=== PATIENT | male | born 1975 | race Caucasian/White ===

== ENCOUNTER 2019-02-08 09:07 | Emergency (ER) | payer BC, OTHER ==
--- NOTE | 2019-02-08 10:58 | ER ---
Nurse's Notes [facility] Name: Morris Tan Age: 43 yrs Sex: Male : 1975 Arrival Date: 02/08/2019 Time: 09:09 Bed 23 Private MD: Diagnosis: Other bursitis of elbow, left elbow Presentation: 02/08 09:13 Presenting complaint: Patient states: Redness and swelling to L arm x 4 days. Patient ss was placed on Clindamycin 2 days ago, but reports it seems to be getting worse. No known injury. Transition of care: patient was not received from another setting of care. Onset of symptoms was February 04, 2019. Risk Assessment: Do you want to hurt yourself or someone else? Patient reports no desire to harm self or others. Initial Sepsis Screen: Does the patient meet any 2 criteria? No. Patient's initial sepsis screen is negative. Does the patient have a suspected source of infection? Yes: Skin breakdown/wound. Care prior to arrival: None. 09:13 Method Of Arrival: Ambulatory ss 09:13 Acuity: NAY 3 ss Historical: - Allergies: 09:15 No Known Allergies; ss - Home Meds: 09:15 Clindamycin Oral [Active]; ss - PMHx: 09:15 None; ss - PSHx: 09:15 Cholecystectomy; detetched retina repair; ss - Immunization history:: Adult Immunizations up to date. - Social history:: Smoking status: Patient/guardian denies using tobacco. - Ebola Screening: : Patient denies exposure to infectious person Patient denies travel to an Ebola-affected area in the 21 days before illness onset. Screenin:13 Abuse screen: Denies threats or abuse. Denies injuries from another. Nutritional ss screening: No deficits noted. Tuberculosis screening: Never had TB. Fall Risk None identified. Assessment: 09:13 General: Appears in no apparent distress. comfortable, Behavior is calm, cooperative, ss Denies fever, feeling ill, fatigue, chills. Pain: Complains of pain in left elbow Pain currently is 3 out of 10 on a pain scale. Quality of pain is described as aching, tender, Pain began 4 days ago Is continuous. Neuro: Level of Consciousness is awake, alert, obeys commands, Oriented to person, place, time, situation. Cardiovascular: Capillary refill < 3 seconds is brisk in bilateral fingers Patient's skin is warm and dry. Respiratory: Airway is patent Respiratory effort is even, unlabored, Respiratory pattern is regular, symmetrical. GI: Patient currently denies diarrhea, nausea, vomiting. : No signs and/or symptoms were reported regarding the genitourinary system. EENT: Nares are clear Oral mucosa is moist. Derm: Skin is intact, is healthy with good turgor, Skin is dry, Skin is pink, warm \T\ dry. normal, redness noted to L elbow. Musculoskeletal: Circulation, motion, and sensation intact. Range of motion: intact in all extremities, Swelling present in left elbow. Vital Signs: 09:12 BP 137 / 85; Pulse 71; Resp 16; Temp 98.1(TE); Pulse Ox 97% on R/A; Weight 92.99 kg; ss Height 6 ft. 0 in. (182.88 cm); Pain 3/10; 09:12 Body Mass Index 27.80 (92.99 kg, 182.88 cm) ED Course: 09:09 Patient arrived in ED. as 09:12 Arm band placed on right wrist. ss 09:13 Patient has correct armband on for positive identification. Bed in low position. Call ss light in reach. 09:14 Triage completed. ss 10:35 Rajendra Jacob PA is PHCP. cp 10:35 Adia Howell MD is Attending Physician. cp 10:54 Yazmin Diaz RN is Primary Nurse. ss 10:56 Bayron Izquierdo MD is Referral Physician. cp 10:56 No provider procedures requiring assistance completed. Patient did not have IV access ss during this emergency room visit. Administered Medications: 10:52 Not Given (Physician Discretion): NS 0.9% 1000 ml IV at 1 bolus Per protocol; 1000 mL ss bolus Outcome: 10:58 Discharge ordered by MD. cp 11:06 Discharged to home ambulatory. ss 11:06 Condition: good 11:06 Discharge instructions given to patient, Instructed on discharge instructions, follow up and referral plans. medication usage, Demonstrated understanding of instructions, follow-up care, medications, Prescriptions given X 4. 11:06 Patient left the ED. ss Signatures: Sue Singh Shelby, RN RN Rajendra Jacob PA PA cp
--- NOTE | 2019-02-08 10:58 | EDPHYS ---
Physician Documentation [facility] Name: Morris Tan Age: 43 yrs Sex: Male : 1975 Arrival Date: 02/08/2019 Time: 09:09 Bed 23 Private MD: ED Physician Adia Howell HPI: 02/08 10:45 This 43 yrs old Male presents to ER via Ambulatory with complaints of Elbow cp Swelling/Redness. 10:45 The patient or guardian complains of pain, that is acute, swelling, tenderness. The cp complaints affect the left elbow. Context: resulted from unknown cause. 10:45 Onset: The symptoms/episode began/occurred 4 day(s) ago. Treatment prior to arrival cp includes: prescription medications, clindamycin. Associated signs and symptoms: Pertinent positives: pain, swelling, warmth, Pertinent negatives: decreased range of motion, fever, numbness. Historical: - Allergies: 09:15 No Known Allergies; ss - Home Meds: 09:15 Clindamycin Oral [Active]; ss - PMHx: 09:15 None; ss - PSHx: 09:15 Cholecystectomy; detetched retina repair; ss - Immunization history:: Adult Immunizations up to date. - Social history:: Smoking status: Patient/guardian denies using tobacco. - Ebola Screening: : Patient denies exposure to infectious person Patient denies travel to an Ebola-affected area in the 21 days before illness onset. ROS: 10:50 Constitutional: Negative for body aches, chills, fever, poor PO intake. cp 10:50 Eyes: Negative for injury, pain, redness, and discharge. cp 10:50 ENT: Negative for drainage from ear(s), ear pain, sore throat, difficulty swallowing, difficulty handling secretions. 10:50 Cardiovascular: Negative for chest pain, palpitations. 10:50 Respiratory: Negative for cough, shortness of breath, wheezing. 10:50 Abdomen/GI: Negative for abdominal pain, nausea, vomiting, and diarrhea, constipation. 10:50 MS/extremity: Positive for pain, swelling, tenderness, of the left elbow, Negative for injury or acute deformity, decreased range of motion, paresthesias. 10:50 Neuro: Negative for altered mental status, numbness, tingling, weakness. 10:50 All other systems are negative. cp Exam: 10:55 Constitutional: The patient appears in no acute distress, alert, awake, cp non-diaphoretic, non-toxic, well developed, well nourished. 10:55 Head/Face: Normocephalic, atraumatic. cp 10:55 Eyes: Periorbital structures: appear normal, Conjunctiva: normal, no exudate, no injection, Sclera: no appreciated abnormality, Lids and lashes: appear normal, bilaterally. 10:55 ENT: External ear(s): are unremarkable, TM's: are normal, Nose: is normal, Mouth: is normal, Posterior pharynx: is normal. 10:55 Chest/axilla: Inspection: normal, Palpation: is normal, no crepitus, no tenderness. 10:55 Cardiovascular: Rate: normal, Rhythm: regular. 10:55 Respiratory: the patient does not display signs of respiratory distress, Respirations: normal, no use of accessory muscles, Breath sounds: are clear throughout. 10:55 Abdomen/GI: Exam negative for discomfort, distension. 10:55 Musculoskeletal/extremity: Extremities: grossly normal except: noted in the left elbow: pain, swelling, tenderness, There is no evidence of decreased ROM, ROM: limited active range of motion due to pain, in the left elbow, Pulses: noted to be 2+ in the right radial artery and left radial artery, Sensation intact. 10:55 Skin: cellulitis, that is mild, on the left elbow. Vital Signs: 09:12 BP 137 / 85; Pulse 71; Resp 16; Temp 98.1(TE); Pulse Ox 97% on R/A; Weight 92.99 kg; ss Height 6 ft. 0 in. (182.88 cm); Pain 3/10; 09:12 Body Mass Index 27.80 (92.99 kg, 182.88 cm) ss MDM: 10:44 Patient medically screened. cp 10:45 Differential diagnosis: abscess, cellulitis, septic joint, bursitis. cp 10:50 Data reviewed: vital signs, nurses notes, I have discussed the patient's cp presentation/case with the attending Emergency Department Physician;. 10:50 Counseling: I had a detailed discussion with the patient and/or guardian regarding: the cp historical points, exam findings, and any diagnostic results supporting the discharge/admit diagnosis, the need for outpatient follow up, a orthopedic surgeon, to return to the emergency department if symptoms worsen or persist or if there are any questions or concerns that arise at home. ED course: VSS. Will have patient increase clindamycin from 300 mg tid to qid and oral Bactrim DS added to take BID. Will discharge and refer to ortho for f/u. 11:43 ED course: Clindamycin quantity changed to #40 for pharmacy. snw Administered Medications: 10:52 Not Given (Physician Discretion): NS 0.9% 1000 ml IV at 1 bolus Per protocol; 1000 mL ss bolus Disposition: 12:03 Co-signature as Attending Physician, Adia Howell MD. ma2 Disposition: 02/08/19 10:58 Discharged to Home. Impression: Other bursitis of elbow, left elbow. - Condition is Stable. - Discharge Instructions: Bursitis, Heat Therapy. - Prescriptions for Clindamycin HCl 300 mg Oral Capsule - take 1 capsule by ORAL route every 6 hours for 10 days; 10 capsule. Ibuprofen 800 mg Oral Tablet - take 1 tablet by ORAL route every 8 hours As needed take with food; 30 tablet. Tramadol 50 mg Oral Tablet - take 1 tablet by ORAL route every 8 hours as needed; 15 tablet. Bactrim DS 800- 160 mg Oral Tablet - take 1 tablet by ORAL route every 12 hours for 10 days; 20 tablet. - Medication Reconciliation Form, Thank You Letter, Antibiotic Education, Prescription Opioid Use form. - Follow up: Bayron Izquierdo MD; When: 1 - 2 days; Reason: Recheck today's complaints. - Problem is an ongoing problem. - Symptoms are unchanged. Signatures: Dispatcher [employer] Jesika Amaro, [employer] Yazmin Diaz RN RN ss Rajendra Jacob PA PA cp Alzahri, Mohammad, MD MD ma2 Corrections: (The following items were deleted from the chart) 10:53 10:46 IV Saline Lock ordered. [facility] 11:06 10:58 02/08/2019 10:58 Discharged to Home. Impression: Other bursitis of elbow, left ss elbow. Condition is Stable. Forms are Medication Reconciliation Form, Thank You Letter, Antibiotic Education, Prescription Opioid Use. Follow up: Bayron Izquierdo; When: 1 - 2 days; Reason: Recheck today's complaints. Problem is an ongoing problem. Symptoms are unchanged. cp 02/09 06:53 02/08 09:20 Constitutional: Negative for body aches, chills, fever, poor PO intake, cp cp 02/09 06:02/08 09:20 Eyes: Negative for injury, pain, redness, and discharge, cp cp 02/09 06:02/08 09:20 ENT: Negative for drainage from ear(s), ear pain, sore throat, difficulty cp swallowing, difficulty handling secretions, cp 02/09 06:02/08 09:20 Cardiovascular: Negative for chest pain, edema, palpitations, cp cp 02/09 06:02/08 09:20 Respiratory: Negative for cough, shortness of breath, wheezing, cp cp 02/09 06:02/08 09:20 Abdomen/GI: Negative for abdominal pain, nausea and vomiting, constipation, cp anorexia, cp 02/09 06:02/08 09:20 Back: Negative for pain at rest, pain with movement, cp 02/09 06:02/08 09:20 MS/extremity: Positive for pain, swelling, tenderness, warmth, of the left cp elbow, Negative for injury or acute deformity, decreased range of motion, paresthesias, cp 02/09 06:02/08 09:20 Neuro: Negative for altered mental status, headache, syncope, cp cp 02/09 06:02/08 09:20 All other systems are negative, cp cp
[2019-02-08 11:31] VITALS: BP 137/85; TEMP 98.1; O2SAT 97
== END 2019-02-08 11:06 | disposition home or self-care (01) ==
LOC: ER 09:07
DX: M70.32 Other bursitis of elbow, left elbow (principal)
CPT/HCPCS: 99282

== ENCOUNTER 2020-05-07 01:12 | Observation (INO) | payer OTHER ==
--- OUTSIDE RECORDS SUMMARY | 2020-05-07 01:20 | XMS REPORT | Summary of Care ---
:1975 Author Organization [facility] Address [address] [place] [id number] Care Team Providers Name Role Phone Pcp, Does Not Have A Primary Care Provider Reason for Visit Reason Comments Nausea 2 days Encounter Details Date Type Department Care Team Description 03/22/2020 Urgent Care [facility] Karuna Duran FNP [address] [facility] [address] [place] [address] Acute non-recurrent maxillary sinusitis (Primary Dx); Medicine - [place] Provider, [facility] Nausea and vomiting, intractability of v omiting not specified, unspecified vomiting type [address] [place] [address] Allergies Active Allergy Reactions Severity Noted Date Comments Codeine Itching Low 02/26/2019 documented as of this encounter (statuses as of 03/22/2020) Medications Medication Sig Dispensed Refills Start Date End Date Status amoxicillin-clavulanat Take 1 tablet by 20 tablet 0 03/22/2020 04/01/2020 Active e 875-125 mg per mouth 2 (two) tabletIndications: times daily for Acute non-recurrent 10 days. maxillary sinusitis ondansetron (ZOFRAN Take 1 tablet by 20 tablet 0 03/22/2020 Active ODT) 8 mg mouth every 8 disintegrating (eight) hours as tabletIndications: needed for Nausea and vomiting, Nausea and intractability of Vomiting (N/V). vomiting not specified, unspecified vomiting type documented as of this encounter (statuses as of 03/22/2020) Active Problems Problem Noted Date Post-op pain 02/28/2019 documented as of this encounter (statuses as of 03/22/2020) Social History Tobacco Use Types Packs/Day Years Used Date Never Smoker Smokeless Tobacco: Never Used Alcohol Use Drinks/Week oz/Week Comments Yes occasionally jessa oun 2-3 times a month Sex Assigned at Date Recorded Not on file COVID-19 Exposure Response Date Recorded In the last month, have you been in contact with No / Unsure 03/22/2020 3:46 PM CDT someone who was confirmed or suspected to have Coronavirus / COVID-19? documented as of this encounter Last Filed Vital Signs Vital Sign Reading Time Taken Comments Blood Pressure 141/85 03/22/2020 3:50 PM CDT Pulse 81 03/22/2020 3:48 PM CDT Temperature 36.8 C (98.2 F) 03/22/2020 3:48 PM CDT Respiratory Rate 16 03/22/2020 3:48 PM CDT Oxygen Saturation 98% 03/22/2020 3:48 PM CDT Inhaled Oxygen Concentration - - Weight 90.3 kg (199 lb) 03/22/2020 3:48 PM CDT Height 182.9 cm (6') 03/22/2020 3:48 PM CDT Body Mass Index 26.99 03/22/2020 3:48 PM CDT documented in this encounter Patient Instructions Patient InstructionsKaruna Duran FNP - 03/22/2020 4:00 PM CDT1. Acute non- recurrent maxillary sinusitis - amoxicillin-clavulanate 875-125 mg per tablet; Take 1 tablet by mouth 2 (two) times daily for 10 days. Dispense: 20 tablet; Refill: 0 - counseled patient about at home care: Rest Raise head of bed Increase fluids -HYDRATION WITH CLEAR LIQUIDS Warm salt water gargles or CEPACOL sprays for sore throat. Breath humidified air (steam) SIPPING WARM DRINKS may help. Warm Compresses (if sinus pressure or pain). HAND HYGIENE (with alcohol gels or hand washing) Advised to take Tylenol or Ibuprofen as per label recommendation as needed for pain or fever Avoidance of cigarette smoke, alcoholic drinks, diving into deep water and air travel is useful. Irrigate your nose with normal saline moisture spray 2 or 3 times a day. You may use a spray, squeeze bottle, or nasal pot. Nasal Congestion (Stopped Up): Oxymetazoline HCl (Afrin, 4-Way, & more) 0.05 % nasal spray, 1 spray each nostril at bedtime. Limit to 5 nights. If use twice a day then limit to 3 days. - Advised to follow up with PCP, return to Urgent Care, or go to the nearest Emergency Department sooner for any new, worsening, persistent, or concerning symptoms. 2. Nausea and vomiting, intractability of vomiting not specified, unspecified vomiting type - ondansetron (ZOFRAN ODT) 8 mg disintegrating tablet; Take 1 tablet by mouth every 8 (eight) hours as needed for Nausea and Vomiting (N/V). Dispense: 20 tablet; Refill: 0 - increase fluids - Follow up with PCP, urgent care or ER in 2-3 days or sooner if symptoms do now improve or worsens.Patient/parent verbalized understanding and agreed with plan of care. Plan of care, desired health behaviors, goals, and medication discussed with patient. Education resources provided and reviewed with AVS. Patient/guardian/family verbalized understanding & agrees to plan of care. Urgent Care precautions and follow up : 1. Return to clinic if your symptoms should worsen or fail to improve within 72 hours. 2. The care provided in the urgent care was for acute problems only. 3. You should follow up with your primary care provider within 72 hours. 4. Fill and take all your medications as prescribed. 5. Make sure you are staying adequately hydrated. MAY FOLLOW-UP WITH A PROVIDER OF YOUR CHOICE, SUCH : 1. A PHYSICIAN OF YOUR CHOICE OR, IF YOU WISH TO FOLLOW-UP WITHIN THE [facility], MAY TRY THESE OPTIONS (CLINIC APPOINTMENTS AVAILABLE ON [id number] BASIS): 1. SCHEDULE AN APPOINTMENT ONLINE AT [facility] 2. OR CALL THE [facility] ACCESS CENTER AT OR 3. OR CALL YOUR [facility] PHYSICIAN'S OFFICE DIRECTLY IF YOU ARE ALREADY AN ESTABLISHED [facility] PATIENT. After [facility] care nurse access center available by calling [phone] 24 hours 7 days per week. Karuna RUBIO [facility] [facility] documented in this encounter Progress Notes Karuna Duran FNP - 03/22/2020 4:00 PM CDT Cc: Chief Complaint Patient presents with Nausea 2 days Morris Tan is a 44 year old male presents with concern for nausea. He started yesterday withnausea, headache and worsening allergy symptoms. He has chronic allergies but doesn't take any otc medication. One episode of emesis yesterday, mostly phlegm. Denies any chest pain, sob, vision changes, syncope or worse headache of life. Denies any fever, chills or body aches. Denies any sick contacts. Eating/drinking good Sinus Problem Pain details: Location: Maxillary Quality: Aching and pressure Severity: Moderate Duration: 3 days Timing: Intermittent Duration: 2 weeks Progression: Worsening Chronicity: New Context: recent URI Relieved by: None tried Worsened by: Nothing Ineffective treatments: None tried Associated symptoms: congestion, cough, fatigue, headaches, mouth breathing, nausea, sneezing and vomiting Associated symptoms: no chills, no ear pain, no fever, no hoarse voice, no shortness of breath, no sore throat, no tooth pain, no vertigo and no wheezing Congestion: Location: Nasal Interferes with sleep: yes Interferes with eating/drinking: no Cough: Cough characteristics: Dry Severity: Mild Onset quality: Gradual Duration: 2 days Timing: Intermittent Progression: Unchanged Chronicity: New Fatigue: Severity: Mild Duration: 2 days Timing: Intermittent Progression: Unchanged Headaches: Severity: Mild Onset quality: Gradual Duration: 1 day Timing: Intermittent Progression: Unchanged Chronicity: New Nausea: Severity: Mild Onset quality: Gradual Duration: 1 day Timing: Intermittent Progression: Unchanged Vomiting: Emesis appearance: phlegm. Number of occurrences: 1 Severity: Mild Duration: 1 day Timing: Intermittent Progression: Improving Risk factors: no asthma, no COPD, no diabetes, no immune deficiency and no smoke exposure Allergies Morris is allergic to codeine. Medications No outpatient medications prior to visit. No facility-administered medications prior to visit. Histories Past Medical History: Diagnosis Date Acid reflux Medical history non-contributory Past Surgical History: Procedure Laterality Date ELBOW BURSECTOMY Left 02/28/2019 Surgeon: Bayron Izquierdo MD; Location: [facility] [place] HB REPAIR DETACT RETINAL Right LAP,CHOLECYSTECTOMY Social History Socioeconomic History Marital status: Single Spouse name: Not on file Number of children: Not on file Years of education: Not on file Highest education level: Not on file Occupational History Not on file Social Needs Financial resource strain: Not on file Food insecurity Worry: Not on file Inability: Not on file Transportation needs Medical: Not on file Non-medical: Not on file Tobacco Use Smoking status: Never Smoker Smokeless tobacco: Never Used Substance and Sexual Activity Alcohol use: Yes Comment: occasionally arooun 2-3 times a month Drug use: Not on file Sexual activity: Not on file Lifestyle Physical activity Days per week: Not on file Minutes per session: Not on file Stress: Not on file Relationships Social connections Talks on phone: Not on file Gets together: Not on file Attends muslim service: Not on file Active member of club or organization: Not on file Attends meetings of clubs or organizations: Not on file Relationship status: Not on file Intimate partner violence Fear of current or ex partner: Not on file Emotionally abused: Not on file Physically abused: Not on file Forced sexual activity: Not on file Other Topics Concern Not on file Social History Narrative Not on file Family History Problem Relation Age of Onset Diabetes Maternal Grandmother Cancer Maternal Grandmother Review of Systems Constitutional: Positive for fatigue. Negative for activity change, appetite change, chills and fever. HENT: Positive for congestion, postnasal drip, sinus pressure and sneezing. Negative for ear pain, hoarse voice and sore throat. Respiratory: Positive for cough. Negative for shortness of breath, wheezing and stridor. Gastrointestinal: Positive for nausea and vomiting. Negative for abdominal pain and diarrhea. Musculoskeletal: Negative for myalgias. Skin: Negative for rash. Neurological: Positive for headaches. Negative for dizziness, vertigo, tremors, seizures, syncope, facial asymmetry, speech difficulty, weakness, light- headedness and numbness. All other systems reviewed and are negative. Vital Signs BP (!) 141/85 | Pulse 81 | Temp 36.8 C (98.2 F) | Resp 16 | Ht 6' (1.829 m) | Wt 199 lb (90.3 kg) | SpO2 98% | BMI 26.99 kg/m Physical Exam Vitals signs and nursing note reviewed. Constitutional: Appearance: He is well-developed. HENT: Head: Normocephalic and atraumatic. Right Ear: Tympanic membrane, ear canal and external ear normal. Left Ear: Tympanic membrane, ear canal and external ear normal. Nose: Nasal tenderness, mucosal edema and congestion present. Right Sinus: Maxillary sinus tenderness present. No frontal sinus tenderness. Left Sinus: Maxillary sinus tenderness present. No frontal sinus tenderness. Mouth/Throat: Lips: [place]. Mouth: Mucous membranes are moist. Pharynx: Oropharynx is clear. No pharyngeal swelling, oropharyngeal exudate, posterior oropharyngeal erythema or uvula swelling. Tonsils: No tonsillar exudate or tonsillar abscesses. 1+ on the right. 1+ on the left. Eyes: Conjunctiva/sclera: Conjunctivae normal. Neck: Musculoskeletal: Normal range of motion and neck supple. Cardiovascular: Rate and Rhythm: Normal rate and regular rhythm. Heart sounds: Normal heart sounds. No murmur. No friction rub. No gallop. Pulmonary: Effort: Pulmonary effort is normal. No accessory muscle usage or respiratory distress. Breath sounds: Normal breath sounds. No decreased breath sounds, wheezing, rhonchi or rales. Abdominal: General: Bowel sounds are normal. There is no distension. Palpations: Abdomen is soft. Tenderness: There is no abdominal tenderness. There is no guarding or rebound. Musculoskeletal: Normal range of motion. Skin: General: Skin is warm and dry. Findings: No rash. Neurological: Mental Status: He is alert and oriented to person, place, and time. Psychiatric: Behavior: Behavior normal. Assessment/Plan Mroris Tan is a 44 year old male presents with concern for nausea. 1. Acute non-recurrent maxillary sinusitis - amoxicillin-clavulanate 875-125 mg per tablet; Take 1 tablet by mouth 2 (two) times daily for 10 days. Dispense: 20 tablet; Refill: 0 - counseled patient about at home care: Rest Raise head of bed Increase fluids -HYDRATION WITH CLEAR LIQUIDS Warm salt water gargles or CEPACOL sprays for sore throat. Breath humidified air (steam) SIPPING WARM DRINKS may help. Warm Compresses (if sinus pressure or pain). HAND HYGIENE (with alcohol gels or hand washing) Advised to take Tylenol or Ibuprofen as per label recommendation as needed for pain or fever Avoidance of cigarette smoke, alcoholic drinks, diving into deep water and air travel is useful. Irrigate your nose with normal saline moisture spray 2 or 3 times a day. You may use a spray, squeeze bottle, or nasal pot. Nasal Congestion (Stopped Up): Oxymetazoline HCl (Afrin, 4-Way, & more) 0.05 % nasal spray, 1 spray each nostril at bedtime. Limit to 5 nights. If use twice a day then limit to 3 days. - Advised to follow up with PCP, return to Urgent Care, or go to the nearest Emergency Department sooner for any new, worsening, persistent, or concerning symptoms. 2. Nausea and vomiting, intractability of vomiting not specified, unspecified vomiting type - ondansetron (ZOFRAN ODT) 8 mg disintegrating tablet; Take 1 tablet by mouth every 8 (eight) hours as needed for Nausea and Vomiting (N/V). Dispense: 20 tablet; Refill: 0 - increase fluids - Follow up with PCP, urgent care or ER in 2-3 days or sooner if symptoms do now improve or worsens.Patient/parent verbalized understanding and agreed with plan of care. Plan of care, desired health behaviors, goals, and medication discussed with patient. Education resources provided and reviewed with AVS. Patient/guardian/family verbalized understanding & agrees to plan of care. Urgent Care precautions and follow up : 1. Return to clinic if your symptoms should worsen or fail to improve within 72 hours. 2. The care provided in the urgent care was for acute problems only. 3. You should follow up with your primary care provider within 72 hours. 4. Fill and take all your medications as prescribed. 5. Make sure you are staying adequately hydrated. MAY FOLLOW-UP WITH A PROVIDER OF YOUR CHOICE, SUCH : 1. A PHYSICIAN OF YOUR CHOICE OR, IF YOU WISH TO FOLLOW-UP WITHIN THE [facility], MAY TRY THESE OPTIONS (CLINIC APPOINTMENTS AVAILABLE ON [id number] BASIS): 1. SCHEDULE AN APPOINTMENT ONLINE AT [facility] 2. OR CALL THE [facility] ACCESS CENTER AT OR 3. OR CALL YOUR [facility] PHYSICIAN'S OFFICE DIRECTLY IF YOU ARE ALREADY AN ESTABLISHED [facility] PATIENT. After hours care nurse access center available by calling [phone] 24 hours 7 days per week. Karuna RUBIO [facility] [facility] Debbie Monreal MA - 03/22/2020 4:00 PM CDT Vitals: 03/22/20 1548 03/22/20 1550 BP: (!) 144/80 (!) 141/85 Pulse: 81 Resp: 16 Temp: 36.8 C (98.2 F) SpO2: 98% Weight: 199 lb (90.3 kg) Height: 6' (1.829 m) [facility] [address] [place] [id number] All Vitals taken, allergies and all medications reviewed, fall risk assessed. Pain level 0. Debbie Mcpherson MA 03/22/2020 3:50 PM documented in this encounter Plan of Treatment Health Maintenance Due Date Last Done Comments Depression Screening 1989 DTaP,Tdap,and Td Vaccines (1 - 1996 Tdap) INFLUENZA VACCINE (#1) 2020 PNEUMOCOCCAL 0-64 YEARS COMBINED Aged Out No longer eligible based on SERIES patient's age to complete this topic documented as of this encounter Results Not on filedocumented in this encounter Visit Diagnoses Diagnosis Acute non-recurrent maxillary sinusitis - Primary Nausea and vomiting, intractability of v omiting not specified, unspecified vomiting type documented in this encounter documented as of this encounter"
--- OUTSIDE RECORDS SUMMARY | 2020-05-07 01:20 | XMS REPORT | Summary of Care ---
:1975 Author Organization [facility] Address [address] [place] [id number] Care Team Providers Name Role Phone RAMIRO Araujo Primary Care Provider Reason for Visit Reason Comments Cough 2 days Congestion nasal Sore Throat started yesterday Headache started yesterday Fatigue 2 days Encounter Details Date Type Department Care Team Description 04/28/2020 Urgent Care [facility] Family Carline Araujo FNP [id number] [place] [address] URI, acute (Primary Dx); Medicine - [place] Provider, [facility] Sore throat; [facility] Exposure t o SARS-associated coronavirus; Drive Blood pressure elevated [place] [address] Allergies Active Allergy Reactions Severity Noted Date Comments Codeine Itching Low 02/26/2019 documented as of this encounter (statuses as of 04/29/2020) Medications Medication Sig Dispensed Refills Start Date End Date Status ondansetron (ZOFRAN ODT) Take 1 tablet by 20 tablet 0 03/22/20 20 Active 8 mg disintegrating mouth every 8 tabletIndications: (eight) hours as Nausea and vomiting, needed for intractability of Nausea and vomiting not specified, Vomiting (N/V). unspecified vomiting type benzonatate (TESSALON Take 1 capsule 42 capsule 0 04/28/2020 1 Active PERLES) 100 mg by mouth 3 0 capsuleIndications: URI, (three) times acute daily for 14 days. methylPREDNISolone 4 mg Take by mouth 21 Each 0 04/28/2020 Active tabletsIndications: URI, SEE-INSTRUCTIONS 0 acute for 6 days. follow package directions documented as of this encounter (statuses as of 04/29/2020) Active Problems Problem Noted Date Post-op pain 02/28/2019 documented as of this encounter (statuses as of 04/29/2020) Social History Tobacco Use Types Packs/Day Years Used Date Never Smoker Smokeless Tobacco: Never Used Alcohol Use Drinks/Week oz/Week Comments Yes occasionally jessa oun 2-3 times a month Sex Assigned at Date Recorded Not on file COVID-19 Exposure Response Date Recorded In the last month, have you been in contact with No / Unsure 04/28/2020 10:30 AM FINAL RAIL CUTTER someone who was confirmed or suspected to have Coronavirus / COVID-19? documented as of this encounter Last Filed Vital Signs Vital Sign Reading Time Taken Comments Blood Pressure 154/97 04/28/2020 10:28 AM FINAL RAIL CUTTER Pulse 98 04/28/2020 10:27 AM FINAL RAIL CUTTER Temperature 37.1 C (98.7 F) 04/28/2020 10:27 AM FINAL RAIL CUTTER Respiratory Rate 18 04/28/2020 10:27 AM FINAL RAIL CUTTER Oxygen Saturation 96% 04/28/2020 10:27 AM FINAL RAIL CUTTER Inhaled Oxygen Concentration - - Weight 93 kg (205 lb) 04/28/2020 10:27 AM FINAL RAIL CUTTER Height 182.9 cm (6') 04/28/2020 10:27 AM FINAL RAIL CUTTER Body Mass Index 27.8 04/28/2020 10:27 AM FINAL RAIL CUTTER documented in this encounter Patient Instructions Patient InstructionsLizet Araujo FNP - 04/28/2020 10:40 AM FINAL RAIL CUTTER Patient Education Self-Care for Sore Throats Sore throats happen for many reasons, such as colds, allergies, cigarette smoke, air pollution, and infections caused by viruses or bacteria. In any case, your throat becomes red and sore. Your goal for self-care is to reduce your discomfort while giving your throat a chance to heal. Moisten and soothe your throat Tips include the following: Try a sip of water first thing after waking up. Keep your throat moist by drinking6 or more glasses of clear liquids every day. Run a cool-air humidifier in your room overnight. Stay away from cigarette smoke. Check the air quality index,if air pollution gives you a sore throat. On high pollution days, tryto limit outdoor time. Suck on throat lozenges, cough drops, hard candy, ice chips, or frozen fruit- juice bars. Use the sugar-free versions if your diet or medical condition requires them. Gargle to ease irritation Gargling every hour or2 can ease irritation. Try gargling with1 of these solutions: 1/4teaspoon of salt in1/2 cup of warm water An fsbu-mni-nhkwzyk anesthetic gargle Use medicine for more relief Bcbd-opq-ugqyjxs medicine can reduce sore throat symptoms. Ask your pharmacist if you have questionsabout which medicine to use. To prevent possible medicine interactions, let the pharmacist know whatmedicines you take. To decrease symptoms: Ease pain with anesthetic sprays. Aspirin or an aspirin substitute also helps. Remember, never give aspirin to anyone 18 or younger. Don't take aspirin if you are alreadytaking blood thinners. For sore throats caused by allergies, try antihistamines to block the allergic reaction. Unless a sore throat is caused by a bacterial infection, antibiotics wont help you. Prevent future sore throats Prevention tips include: Stop smoking or reduce contact with secondhand smoke. Smoke irritates the tender throat lining. Limit contact with pets and with allergy-causing substances, such as pollen and mold. Wash your hands often when youre around someone with a sore throat or cold. This will keep viruses or bacteria from spreading. Limit outdoor time when air pollution is bad. Dont strain your vocal cords. When to call your healthcare provider Contact your healthcare provider if you have: Fever of 100.4F (38.0C) or higher, or as directed by your healthcare provider White spots on the throat Great Trouble swallowing A skin rash Recent exposure to someone else with strep bacteria Severe hoarseness and swollen glands in the neck or jaw Call 911 Call 911 if any of the following occur: Trouble breathing or catching your breath Drooling and problems swallowing Wheezing Unable to talk Feeling dizzy or faint Feeling of doom Ritika last reviewed this educational content on 01/28/201919993835-9124 [employer]. [address] [place] [address], [place] [address]. All rights reserved. This information is not intended as a substitute for professional medical care. Always follow your healthcare professional's instructions. Patient Education Preventing Common Respiratory Infections Respiratory infections such as colds and the flu (influenza) are common in winter. These infections are often caused by viruses. They may share some symptoms. But not all respiratory infections are thesame. Some make you more sick than others. You can take steps to prevent common respiratory infections. And if you get sick, you can take care of yourself to keep the infection from getting worse. What is a cold? Symptoms include runny nose, coughing and sneezing, and sore throat. Cold symptoms tend to be milder than flu symptoms. Symptoms tend to come on slowly. They last for a few days to about a week. With a cold, you can still do most of the things you normally do. What is the flu? Symptoms include fever, headache, extreme tiredness (fatigue), cough, sore throat, runny nose, and muscle aches. Children may have upset stomach and vomiting, but adults often dont. Symptoms tend to come on quickly. Some, such as fatigue and cough, can last a few weeks. With the flu, you may feel worn out and not able to do normal activities. Its most likely not the flu if an adult has vomiting or diarrhea for a day or two. This so-called stomach flu is probably a GI (gastrointestinal) infection. When the infection gets worse Without proper care, a respiratory infection can get worse. It can lead to serious complications anddeath. If you arent getting better, call your healthcare provider. Complications can include: Bronchitis (infection of the airways that leads to shortness of breath and coughing up thick yellow or green mucus) Pneumonia (infection of the lungs in which fluid and mucus settle in the lungs, making breathing difficult) Worsening of chronic conditions such as heart failure, chronic lung disease, asthma, or diabetes Severe dehydration (loss of fluids) Sinus problems Ear infections Get a flu vaccine A fluvaccine protects you from influenza (but not other colds or infections). Get a vaccine each fall, before flu season starts. This can be done at a clinic, healthcare providers office, pharmacy, [facility], or through your workplace. Get pneumococcal vaccines Pneumonia can be a complication of influenza. There are 2 pneumococcal pneumonia vaccines that protect against many types of pneumonia. Talk with your healthcare provider about these important vaccines. Keep germs from spreading No one likes getting sick. To protect yourself and others from cold and flu germs: Wash your hands often with warm water and soap. Scrub them for 15 to 20 seconds. Use alcohol-based hand risk management consultant when you dont have access to soap and water. Dont touch your eyes, nose, and mouth. This may help you keep germs out of your body. Try to stay away from people with respiratory infections. You may want to stay out of crowds during flu season (winter). Ask your healthcare provider if you should get a pneumonia vaccination. Don't smoke and don't let others smoke in your home or car How to wash your hands Use warm water and plenty of soap. Work up a good lather. Clean your whole hand, under your nails, between your fingers, and up your wrists. Wash for at least 15 to 20 seconds. Dont just wiperub well. Rinse. Let the water run down your fingertips, not up your wrists. In a public restroom, use a paper towel to turn off the faucet and open the door. [employer] last reviewed this educational content on 03/30/201919995976-1994 [employer]. All rights reserved. This information is not intended as a substitute for professional medical care. Always follow your healthcare professional's instructions. Patient Education Controlling High Blood Pressure High blood pressure (hypertension) is often called the silent killer. This is because many people who have it, dont know it. It can be very dangerous. High blood pressure can raise your risk of heart attack, stroke, heart disease, and heart failure. Controlling your blood pressure can decrease yourrisk of these problems. It's important to know the appropriate blood pressure range and remember to check your blood pressure regularly. Doing so can save your life. Blood pressure measurements are given as 2 numbers. Systolic blood pressure is the upper number. This is the pressure when the heart contracts. Diastolic blood pressure is the lower number. This is thepressure when the heart relaxes between beats. Blood pressure is categorized as normal, elevated, or stage 1 or stage 2 high blood pressure: Normal blood pressure is systolic of less than 120 and diastolic of less than 80 (120/80) Elevated blood pressure is systolic of 120 to 129 and diastolic less than 80 Stage 1 high blood pressure is systolic of 130 to 139 or diastolic between 80 to 89 Stage 2 high blood pressure is when systolic is 140 or higher or the diastolic is 90 or higher A heart-healthy lifestyle can help you control your blood pressure without medicines. Here are some things you can do to pursue a heart-healthy lifestyle: Choose heart-healthy foods Select low-salt, low-fat foods. Limit sodium intake to 2,400 mg per day or the amount suggested by your healthcare provider. Limit canned, dried, cured, packaged, and fast foods. These can contain a lot of salt. Eat 8 to 10 servings of fruits and vegetables every day. Choose lean meats, fish, or chicken. Eat whole-grain pasta, brown rice, and beans. Eat 2 to 3 servings of low-fat or fat-free dairy products. Ask your doctor about the DASH eating plan. This plan helps reduce blood pressure. When you go to a restaurant, ask that your meal be prepared with no added salt. Stay at a healthy weight Ask your healthcare provider how many calories to eat a day. Then stick to that number. Ask your healthcare provider what weight range is healthiest for you. If you are overweight, a weight loss of only 3% to 5% of your body weightcan help lower blood pressure. Generally, a good weight loss goal is to lose 10% of your body weight in a year. Limit snacks and sweets. Get regular exercise. Get up and get active Find activities you enjoy that can be done alone or with friends or family. Such activities mightinclude bicycling, dancing, walking, or jogging. Park farther away from building entrances to walk more. Use stairs instead of the elevator. When you can, walk or bike instead of driving. Sutter leaves, garden, or do household repairs. Be active at a moderate to vigorous level of physical activity for at least 40 minutes for a minimum of 3 to 4 days a week. Manage stress Make time to relax and enjoy life. Find time to laugh. Communicate your concerns with your loved ones and your healthcare provider. Visit with family and friends, and keep up with hobbies. Limit alcohol and quit smoking Men should have no more than 2 drinks per day. Women should have no more than 1 drink per day. Talk with your healthcare provider about quitting smoking. Smoking significantly increases your risk for heart disease and stroke. Ask your healthcare provider about community smoking cessation programs and other options. Medicines If lifestyle changes arent enough, your healthcare provider may prescribe high blood pressure medicine. Take all medicines as prescribed. If you have any questions about your medicines, ask your healthcare provider before stopping or changing them. [employer] last reviewed this educational content on 10/28/201819999936-9861 [employer]. All rights reserved. This information is not intended as a substitute for professional medical care. Always follow your healthcare professional's instructions. L RAIL CUTTER documented in this encounter Progress Notes Lizet Araujo FNP - 04/28/2020 10:40 AM CST Cc: Chief Complaint Patient presents with Cough 2 days Congestion nasal Sore Throat started yesterday Headache started yesterday Fatigue 2 days Morris Tan is a 44 year old male. Patient is here with URI symptoms as detailed below. URI Presenting symptoms: congestion, cough, ear pain, fatigue and sore throat Presenting symptoms: no fever Congestion: Location: Nasal Interferes with sleep: no Interferes with eating/drinking: no Cough: Cough characteristics: Productive Sputum characteristics: Nondescript Severity: Mild Onset quality: Gradual Duration: 2 days Timing: Intermittent Progression: Unchanged Chronicity: New Ear pain: Location: Bilateral Severity: Moderate Onset quality: Gradual Timing: Intermittent Progression: Unchanged Chronicity: New Fatigue: Severity: Moderate Timing: Intermittent Progression: Unchanged Severity: Mild Onset quality: Gradual Timing: Intermittent Progression: Resolved Chronicity: New Relieved by: Nothing Worsened by: Nothing Ineffective treatments: None tried Associated symptoms: headaches Associated symptoms: no wheezing Headaches: Severity: Mild Onset quality: Gradual Timing: Constant Progression: Unchanged Chronicity: New Risk factors: no sick contacts Allergies Morris is allergic to codeine. Medications Outpatient Medications Prior to Visit Medication Sig Dispense Refill ondansetron (ZOFRAN ODT) 8 mg disintegrating tablet Take 1 tablet by mouth every 8 (eight) hoursas needed for Nausea and Vomiting (N/V). 20 tablet 0 No facility-administered medications prior to visit. Histories Past Medical History: Diagnosis Date Acid reflux Medical history non-contributory Past Surgical History: Procedure Laterality Date ELBOW BURSECTOMY Left 02/28/2019 Surgeon: Bayron Izquierdo MD; Location: [facility] HB REPAIR DETACT RETINAL Right LAP,CHOLECYSTECTOMY Social [...] file Gets together: Not on file Attends roman catholic service: Not on file Active member of [...] Systems Constitutional: Positive for fatigue. Negative for chills and fever. HENT: Positive for congestion, ear pain and sore throat. Negative for trouble swallowing and voice change. Respiratory: Positive for cough. Negative for chest tightness, shortness of breath and wheezing. Cardiovascular: Negative. Negative for chest pain and palpitations. Gastrointestinal: Negative. Neurological: Positive for headaches. Negative for syncope, weakness and light-headedness. Psychiatric/Behavioral: Negative. Endocrine: Endocrine negative Vital Signs BP (!) 154/97 | Pulse 98 | Temp 37.1 C (98.7 F) (Oral) | Resp 18 | Ht 6' (1.829 m) | Wt 205lb (93 kg) | SpO2 96% | BMI 27.80 kg/m Physical Exam Vitals signs and nursing note reviewed. Constitutional: General: He is not in acute distress. Appearance: He is well-developed. HENT: Head: Normocephalic. Right Ear: Hearing, tympanic membrane, ear canal and external ear normal. Left Ear: Hearing, tympanic membrane, ear canal and external ear normal. Nose: Congestion present. Right Sinus: No maxillary sinus tenderness or frontal sinus tenderness. Left Sinus: No maxillary sinus tenderness or frontal sinus tenderness. Mouth/Throat: Lips: [place]. Mouth: Mucous membranes are moist. Pharynx: Oropharynx is clear. No pharyngeal swelling, oropharyngeal exudate, posterior oropharyngeal erythema or uvula swelling. Cardiovascular: Rate and Rhythm: Normal rate and regular rhythm. Heart sounds: Normal heart sounds. No murmur. No friction rub. No gallop. Pulmonary: Effort: Pulmonary effort is normal. No respiratory distress. Breath sounds: Normal breath sounds. No stridor. No wheezing or rales. Chest: Chest wall: No tenderness. Abdominal: General: Bowel sounds are normal. Palpations: Abdomen is soft. Lymphadenopathy: Head: Right side of head: No submental, submandibular, tonsillar, preauricular or posterior auricular adenopathy. Left side of head: No submental, submandibular, tonsillar, preauricular or posterior auricular adenopathy. Cervical: No cervical adenopathy. Skin: General: Skin is warm and dry. Capillary Refill: Capillary refill takes less than 2 seconds. Neurological: Mental Status: He is alert and oriented to person, place, and time. Psychiatric: Mood and Affect: Mood normal. Assessment/Plan URI, acute (primary encounter diagnosis) Comment: patient insistent on getting an antibiotics today, but is told if symptoms persistent in 7-10 days to follow up as antibiotics are not used for viral infection which with 2 days of symptom is what i suspect. Plan: POCT FLU A AND B (MOLECULAR), benzonatate (TESSALON PERLES) 100 mg capsule, methylPREDNISolone 4 mg tablets Sore throat Comment: Plan: POCT GRP A STREP (MOLECULAR) Dont smoke, and avoid secondhand smoke. Try lozenges OTC as directed Drink warm liquids to soothe the throat and help thin mucus. Avoid alcohol, spicy foods, and acidic drinks such as orange juice. These can irritate the throat. Gargle with warm saltwater (1 teaspoon of salt to 8 ounces of warm water). Use a humidifier to keep air moist and relieve throat dryness. Try kwnm-zev-vcqhnjl pain relievers such as acetaminophen or ibuprofen. Use as directed, and dont exceed the recommended dose. Exposure to SARS-associated coronavirus Comment: Plan: COVID-19 (MOLECULAR TESTING NUCLEIC ACID AMPLIFICATION), COVID-19 (MOLECULAR TESTING NUCLEIC ACID AMPLIFICATION) - Quarantine until your COVID results are back Criteria met - Covid testing - pending. This test can take 2-3 days to be resulted. While the test is pending...Please socially isolate your self - do not go out to stores or out in public. We will contact you once we have the results. If you are negative - continue with symptomatic treatment. (see below) Patients who have positive results will be contacted by the health department to enforce quarantine measures and for additional community contact tracing. The Infection Control Department will also undertake evaluation of exposures in our healthcare facility. If symptoms worsen - please call your Primary Care Doctor - do not go into the clinic. Call first. Blood pressure elevated without history of HTN Comment: he has had elevated blood pressure every visit but declined interventions states his blood pressures are good at home. Plan: Watch blood pressure: check at least twice weekly if consistently >130/80 follow up. Low salt Low caffeine diet Low alcohol Avoid tobacco products. Heart Healthy Exercise: total of 150 minutes of cardio: walking,swimming, hiking, biking every week. Heart healthy diet: low fat/carb/sugar diet; increase lean meat-chicken, turkey, fish; increase vegetables/fruits ( still be careful because elevated sugar level) ER--> worsening condition; cp, shortness of breath, dizziness, syncope, palpitations, n/v, diaphoresis. Plan of care, desired health behaviors, goals, and medication discussed with patient. Education resources provided and reviewed with AVS. Patient/guardian/family verbalized understanding & agrees to plan of care. This visit did not involve counseling and coordination that comprised more than 50% of the visit time. If applicable, the [facility] database was accessed to review any controlled substance prescription claims data. The [employer] prescription claims data in [employer] was reviewed to assess patient compliance with the medication treatment plan. L RAIL CUTTER documented in this encounter Plan of Treatment Name Type Priority Associated Diagnoses Date/Ti me LAB ONLY COVID LAB Routine Exposure to 04/28/2020 10 :29 AM INTERPRETATION SARS-associated FINAL RAIL CUTTER coronavirus Health Maintenance Due Date Last Done Comments Depression Screening 1989 DTaP,Tdap,and Td Vaccines (1 - 1996 Tdap) INFLUENZA VACCINE (#1) 2020 PNEUMOCOCCAL 0-64 YEARS COMBINED Aged Out No longer eligible based on SERIES patient's age to complete this topic documented as of this encounter Procedures Procedure Name Priority Date/Time Associated Diagnosis Comme nts POCT FLU A AND B Routine 04/28/2020 11:21 AM URI, acute Resu lts for this (MOLECULAR) FINAL RAIL CUTTER procedure are i n the results section. POCT GRP A STREP Routine 04/28/2020 11:20 AM Sore throat Resu lts for this (MOLECULAR) FINAL RAIL CUTTER procedure are i n the results section. COVID-19 (MOLECULAR Routine 04/28/2020 10:29 AM Exposure to R esults for this TESTING FINAL RAIL CUTTER SARS-associated procedure are in NUCLEIC ACID coronavirus the results AMPLIFICATION) section. documented in this encounter Results POCT FLU A AND B (MOLECULAR) (04/28/2020 11:21 AM FINAL RAIL CUTTER) Pathologist [facility] POCT INFLUENZA A negative Negative - Negative POCT INFLUENZA B negative Negative - Negative Specimen Swab POCT GRP A STREP (MOLECULAR) (04/28/2020 11:20 AM FINAL RAIL CUTTER) Pathologist [facility] POCT GP A STREP negative Negative - Negative Specimen Swab - THROAT COVID-19 (MOLECULAR TESTING NUCLEIC ACID AMPLIFICATION) (04/28/2020 10:29 AM FINAL RAIL CUTTER) Pathologist [facility] SARS-CoV-2 NAAT Positive (A) Not Detected [facility] Specimen Swab - NASOPHARYNGEAL SWAB Narrative Performed At [employer] SARS-CoV-2 Assay is a nucleic acid [facility] amplification test intended for the qualitative detect ion of RNA from SARS-CoV-2 from nasopharyngeal (IT SYSTEMS ANALYST CONSULTANT) specimens . It is used under Emergency Use Authorizatio n (EUA) by FDA. A positive result is indicative of the presence of SARS-CoV-2 RNA. Clinical correlation with patient hi story and other diagnostic information is necessary to deter mine patient infection status. A negative (Not Detected) result does not preclude SARS-CoV-2 infection. Clinical correlation with nishi ent history and other diagnostic information should be use d in patient management decisions. Invalid: Unable to generate a valid test result on thi s specimen. Please submit a new specimen for repeat te sting if clinically indicated. Performing Organization Address City/State/Zipcode Phone Number [facility] CLIA: [id number] [place] [address] [phone] [place] [address] documented in this encounter Visit Diagnoses Diagnosis URI, acute - Primary Acute upper respiratory infections of un specified site Sore throat Acute pharyngitis Exposure to SARS-associated coronavirus Blood pressure elevated without history of HTN Elevated blood pressure reading without diagnosis of hypertension documented in this encounter Additional Health Concerns Infection Onset Date Last Indicated Resolved Time COVID-19 Rule Out 04/28/2020 04/28/2020 04/28/2020 9: 24 PM FINAL RAIL CUTTER documented as of this encounter documented as of this encounter"
--- OUTSIDE RECORDS SUMMARY | 2020-05-07 01:20 | XMS REPORT | Summary of Care ---
:1975 Author Organization [facility] Address [address] [id number] Care Team Providers Name Role Phone RAMIRO Araujo Primary Care Provider Reason for Visit Reason Comments Cough 2 days Congestion nasal Sore Throat started yesterday Headache started yesterday Fatigue 2 days Encounter Details Date Type Department Care Team Description 04/28/2020 Urgent Care [facility] Family Carline Araujo FNP [id number] [place] [address] URI, acute (Primary Dx); Medicine - [place] Provider, [facility] Sore throat; [facility] Exposure t o SARS-associated coronavirus; Drive Blood pressure elevated with [place] [address] Allergies Active Allergy Reactions Severity Noted Date Comments Codeine Itching Low 02/26/2019 documented as of this encounter (statuses as of 04/28/2020) Medications Medication Sig Dispensed Refills Start Date [...] as of this encounter (statuses as of 04/28/2020) Active Problems Problem Noted Date Post-op pain 02/28/2019 documented as of this encounter (statuses as of 04/28/2020) Social History Tobacco Use Types Packs/Day Years Used Date Never Smoker Smokeless Tobacco: Never Used Alcohol Use Drinks/Week oz/Week Comments Yes occasionally jessa oun 2-3 times a month Sex Assigned at Date Recorded Not on file COVID-19 Exposure Response Date Recorded In the last month, have you been in contact with No / Unsure 04/28/2020 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 documented as of this encounter Last Filed Vital Signs Vital Sign Reading Time Taken Comments Blood Pressure 154/97 04/28/2020 10:28 AM LOCK OPERATOR Pulse 98 04/28/2020 10:27 AM LOCK OPERATOR Temperature 37.1 C (98.7 F) 04/28/2020 10:27 AM LOCK OPERATOR Respiratory Rate 18 04/28/2020 10:27 AM LOCK OPERATOR Oxygen Saturation 96% 04/28/2020 10:27 AM LOCK OPERATOR Inhaled Oxygen Concentration - - Weight 93 kg (205 lb) 04/28/2020 10:27 AM LOCK OPERATOR Height 182.9 cm (6') 04/28/2020 10:27 AM LOCK OPERATOR Body Mass Index 27.8 04/28/2020 10:27 AM LOCK OPERATOR documented in this encounter Patient Instructions Patient InstructionsLizet Araujo FNP - 04/28/2020 10:40 AM LOCK OPERATOR Patient Education Self-Care for Sore Throats Sore [...] salt in1/2 cup of warm water An erzg-sid-viywdbb anesthetic gargle Use medicine for more relief Pqmg-eiz-nggnpgl medicine can reduce sore throat symptoms. Ask [...] Ritika last reviewed this educational content on 01/28/201919997948-6007 [employer]. [address] [place] [address], [place] [address]. All rights reserved. This information is not [...] at a clinic, healthcare providers office, pharmacy, [facility], or through your workplace. Get pneumococcal [...] 15 to 20 seconds. Use alcohol-based hand body make up artist when you dont have access to soap [...] off the faucet and open the door. [employer] last reviewed this educational content on 03/30/201919997026-6130 [employer]. All rights reserved. This information is not [...] can, walk or bike instead of driving. Shorter leaves, garden, or do household repairs. Be [...] healthcare provider before stopping or changing them. [employer] last reviewed this educational content on 10/28/201819991925-6933 [employer]. All rights reserved. This information is not intended as a substitute for professional medical care. Always follow your healthcare professional's instructions. OPERATOR documented in this encounter Progress Notes Lizet [...] Left 02/28/2019 Surgeon: Bayron Izquierdo MD; Location: [facility] HB REPAIR DETACT RETINAL Right LAP,CHOLECYSTECTOMY Social [...] file Gets together: Not on file Attends bahai service: Not on file Active member of [...] tenderness or frontal sinus tenderness. Mouth/Throat: Lips: [place]. Mouth: Mucous membranes are moist. Pharynx: Oropharynx [...] air moist and relieve throat dryness. Try aaie-gsc-jhebfxf pain relievers such as acetaminophen or ibuprofen. [...] of the visit time. If applicable, the [facility] database was accessed to review any controlled substance prescription claims data. The [employer] prescription claims data in [place] was reviewed to assess patient compliance with the medication treatment plan. OPERATOR documented in this encounter Plan of Treatment Name Type Priority Associated Diagnoses Date/Ti me COVID-19 (MOLECULAR LAB Routine Exposure to 04/28/20 20 10:29 AM LOCK OPERATOR TESTING SARS-associated NUCLEIC ACID coronavirus AMPLIFICATION) Name Type Priority Associated Diagnoses Order S chedule COVID-19 (MOLECULAR LAB Routine Exposure to Expected : 04/28/2020, TESTING SARS-associated Expires: 021 NUCLEIC ACID coronavirus AMPLIFICATION) Health Maintenance Due Date Last Done Comments [...] URI, acute Resu lts for this (MOLECULAR) LOCK OPERATOR procedure are i n the results section. POCT GRP A STREP Routine 04/28/2020 11:20 AM Sore throat Resu lts for this (MOLECULAR) LOCK OPERATOR procedure are i n the results section. documented in this encounter Results POCT FLU A AND B (MOLECULAR) (04/28/2020 11:21 AM LOCK OPERATOR) Pathologist Sig nature POCT INFLUENZA A negative Negative - Negative POCT INFLUENZA B negative Negative - Negative Specimen Swab POCT GRP A STREP (MOLECULAR) (04/28/2020 11:20 AM LOCK OPERATOR) Pathologist Sig nature POCT GP A STREP negative Negative - Negative Specimen Swab - THROAT documented in this encounter Visit Diagnoses Diagnosis URI, acute - Primary Acute upper respiratory infections of un specified site Sore throat Acute pharyngitis Exposure to SARS-associated coronavirus Blood pressure elevated without history of HTN Elevated blood pressure reading without diagnosis of hypertension documented in this encounter Additional Health Concerns Infection Onset Date Last Indicated Resolved Time COVID-19 Rule Out 04/28/2020 04/28/2020 documented as of this encounter documented as of this encounter"
[2020-05-07] MEDS ORDERED: dexAMETHasone 10 MG/ML VIAL ONE (01:47)
[2020-05-07] MEDS ORDERED: NA CHLORIDE 0.9% 250 ML ONE (01:48)
[2020-05-07] MEDS ORDERED: AZITHROMYCIN 500 MG INJ IVPB ONE (01:48)
[2020-05-07] MEDS ORDERED: CEFTRIAXONE/SWI 1gm 1 GM/10 ML SYR ONE (01:48)
[2020-05-07] MEDS ORDERED: FAMOTIDINE 20 MG/2 ML VIAL IV ONE (01:48)
[2020-05-07 02:07] LABS: Basophils % 0.3 % (0-1.3); Hematocrit 45.2 % (39.6-49.0); Lymphocytes % 14.1 % (15.3-44.8); MPV 8.4 fL (7.6-11.3); RBC Red Blood Cell Count 5.17 M/uL (4.33-5.43)
[2020-05-07 02:09] LABS: Protime INR 1.1
[2020-05-07 03:00] LABS: ALT/SGPT 17 U/L (12-78); AST/SGOT 22 U/L (15-37); Albumin 3.5 g/dL (3.4-5.0); Alkaline Phosphatase 52 U/L (45-117); BUN Blood Urea Nitrogen 22 mg/dL (7-18); Bicarbonate 28 mmol/L (21-32); Bilirubin Direct 0.2 mg/dL (0-0.2); Bilirubin Total 0.5 mg/dL (0.2-1.0); Ferritin 254.9 ng/mL (26-388); Glucose Level 109 mg/dL (74-106); Magnesium 2.2 mg/dL (1.8-2.4); NT PRO-BNP 19 pg/mL (<125); Potassium 3.3 mmol/L (3.5-5.1); Protein, Total 7.9 g/dL (6.4-8.2); Sodium Level 139 mmol/L (136-145); Troponin (Emerg Dept Use Only) < 0.02 ng/mL (0.0-0.045)
[2020-05-07] MEDS ORDERED: ASPIRIN 81 MG CHEWABLE TABLET ONE (03:51)
[2020-05-07] MEDS ORDERED: POTASSIUM 25 MEQ EFFERV TAB ONE (03:52)
--- NOTE | 2020-05-07 04:09 | EDPHYS ---
Physician Documentation [facility] Name: Morris Tan Age: 44 yrs Sex: Male : 1975 Arrival Date: 05/07/2020 Time: 01:15 Bed 7 Private MD: MYRIAM Physician Rajendra Patterson HPI: 05/07 03:30 This 44 yrs old Male presents to ER via Ambulatory with complaints of COVID + darrin CHEST PAIN, DIFFICULTY BREATHING. 03:30 The patient has shortness of breath at rest, with light activity. Onset: The darrin symptoms/episode began/occurred 1 week(s) ago. Duration: The symptoms are continuous, and are steadily getting worse. The patient's shortness of breath is aggravated by coughing, light activity, is alleviated by elevating head, inhaler, sitting up, application of supplemental oxygen. The patient or guardian reports chest pain that is located primarily in the anterior chest wall. Onset: 1 week(s) ago. Modifying factors: The symptoms are alleviated by remaining still, rest, the symptoms are aggravated by cold environment. Associated signs and symptoms: Pertinent positives: non-productive cough, fever. Historical: - Allergies: 01:34 Codeine; sg - Home Meds: 02:06 None [Active]; sg - PMHx: 02:06 COVID 19; sg - PSHx: 01:34 Cholecystectomy; detached retina repair; sg - Immunization history:: Adult Immunizations up to date. - Social history:: Smoking status: Patient denies any tobacco usage or history of. - Family history:: not pertinent. ROS: 03:30 Constitutional: Negative for fever, chills, and weight loss, Eyes: Negative for injury, darrin pain, redness, and discharge, ENT: Negative for injury, pain, and discharge, Neck: Negative for injury, pain, and swelling, Cardiovascular: Negative for chest pain, palpitations, and edema, Abdomen/GI: Negative for abdominal pain, nausea, vomiting, diarrhea, and constipation, Back: Negative for injury and pain, : Negative for injury, bleeding, discharge, and swelling, MS/Extremity: Negative for injury and deformity, Skin: Negative for injury, rash, and discoloration, Neuro: Negative for headache, weakness, numbness, tingling, and seizure, Psych: Negative for depression, anxiety, suicide ideation, homicidal ideation, and hallucinations, Allergy/Immunology: Negative for hives, rash, and allergies, Endocrine: Negative for neck swelling, polydipsia, polyuria, polyphagia, and marked weight changes, Hematologic/Lymphatic: Negative for swollen nodes, abnormal bleeding, and unusual bruising. 03:30 Respiratory: Positive for cough, dyspnea on exertion, pleurisy, shortness of breath, wheezing, expiratory. Exam: 03:30 Constitutional: This is a well developed, well nourished patient who is awake, alert, darrin and in no acute distress. Head/Face: Normocephalic, atraumatic. Eyes: Pupils equal round and reactive to light, extra-ocular motions intact. Lids and lashes normal. Conjunctiva and sclera are non-icteric and not injected. Cornea within normal limits. Periorbital areas with no swelling, redness, or edema. ENT: Nares patent. No nasal discharge, no septal abnormalities noted. Tympanic membranes are normal and external auditory canals are clear. Oropharynx with no redness, swelling, or masses, exudates, or evidence of obstruction, uvula midline. Mucous membranes moist. Neck: Trachea midline, no thyromegaly or masses palpated, and no cervical lymphadenopathy. Supple, full range of motion without nuchal rigidity, or vertebral point tenderness. No Meningismus. Chest/axilla: Normal chest wall appearance and motion. Nontender with no deformity. No lesions are appreciated. Cardiovascular: Regular rate and rhythm with a normal S1 and S2. No gallops, murmurs, or rubs. Normal PMI, no JVD. No pulse deficits. Abdomen/GI: Soft, non-tender, with normal bowel sounds. No distension or tympany. No guarding or rebound. No evidence of tenderness throughout. Back: No spinal tenderness. No costovertebral tenderness. Full range of motion. Male : Normal genitalia with no discharge or lesions. Skin: Warm, dry with normal turgor. Normal color with no rashes, no lesions, and no evidence of cellulitis. MS/ Extremity: Pulses equal, no cyanosis. Neurovascular intact. Full, normal range of motion. Neuro: Awake and alert, GCS 15, oriented to person, place, time, and situation. Cranial nerves II-XII grossly intact. Motor strength 5/5 in all extremities. Sensory grossly intact. Cerebellar exam normal. Normal gait. Psych: Awake, alert, with orientation to person, place and time. Behavior, mood, and affect are within normal limits. 03:30 Respiratory: the patient does not display signs of respiratory distress, Respirations: normal, no acute changes, Breath sounds: bronchial sounds, decreased breath sounds, that are mild, are located in both bases, rhonchi, that are mild, stridor, is not appreciated, + upper airway congestion. 03:35 ECG was reviewed by the Attending Physician. [facility] Vital Signs: 01:42 BP 122 / 103; Pulse 91; Resp 16; Temp 99.1; Pulse Ox 94% on R/A; Weight 113.4 kg; ea Height 6 ft. (182.88 cm); 02:18 BP 129 / 90; Pulse 93; Resp 17; Pulse Ox 94% ; ea 04:46 BP 133 / 87; Pulse 90; Resp 20; Pulse Ox 89% on R/A; ea 01:42 Body Mass Index 33.91 (113.40 kg, 182.88 cm) ea 04:46 Pt sats taken after ambulating ea MDM: 01:22 Patient medically screened. darrin 03:33 Differential diagnosis: Anxiety Reaction CHF exacerbation, Chronic Obstructive darrin Pulmonary Disease bronchitis, flu, URI, pneumonia, Pneumothorax Psychogenic pulmonary edema, Pulmonary Embolism. Antibiotic administration: Rocephin and Zithromax given. HEART Score: Total Score = 0. The patient was given aspirin in the Emergency Department. The patient's Wells Deep Vein Thrombosis Score was calculated as follows: Total Score: 0. This patient was found to be at low risk for a deep vein thrombosis by using the Well's assessment criteria Total Score: 0-2 Pts- Low Risk. The patient's pulmonary embolism risk score was calculated as follows: No Risks (0 Pts) Total Score: 0-2 points. This patient was found to be at low risk for a pulmonary embolism by using the Well's assessment criteria Total Score:. BRANDEE Risk Score: TOTAL SCORE = 0. Immunization status:. Data reviewed: vital signs, nurses notes, lab test result(s), EKG, radiologic studies. Data interpreted: site monitor: rate is 93 beats/min, rhythm is regular, Pulse oximetry: on room air is 94 %. Test interpretation: by ED physician or midlevel provider: ECG, plain radiologic studies. 05/07 01:25 Order name: Basic Metabolic Panel; Complete Time: 03:28 [facility] 05/07 01:25 Order name: CBC with Diff [facility] 05/07 01:25 Order name: LFT's [facility] 05/07 01:25 Order name: Magnesium [facility] 05/07 01:25 Order name: NT PRO-BNP [facility] 05/07 01:25 Order name: PT-INR [facility] 05/07 01:25 Order name: Troponin (emerg Dept Use Only) [facility] 05/07 01:25 Order name: Blood Culture Adult (2) [facility] 05/07 01:25 Order name: CRP [facility] 05/07 01:25 Order name: Ferritin [facility] 05/07 02:13 Order name: CBC with Automated Diff; Complete Time: 03:28 EDMS 05/07 02:13 Order name: Protime (+INR); Complete Time: 03:28 EDUT 05/07 03:00 Order name: Liver (Hepatic) Function; Complete Time: 03:28 EDMS 05/07 03:00 Order name: Magnesium; Complete Time: 03:28 EDUT 05/07 01:25 Order name: XRAY Chest (1 view); Complete Time: 09:26 [facility] 05/07 01:25 Order name: EKG; Complete Time: 01:26 [facility] 05/07 01:25 Order name: Cardiac monitoring; Complete Time: 02:18 [facility] 05/07 01:25 Order name: EKG - Nurse/Tech; Complete Time: 02:18 [facility] 05/07 01:25 Order name: IV Saline Lock; Complete Time: 02:18 [facility] 05/07 01:25 Order name: Labs collected and sent; Complete Time: 02:18 [facility] 05/07 01:25 Order name: O2 Per Protocol; Complete Time: 02:18 [facility] 05/07 01:25 Order name: O2 Sat Monitoring; Complete Time: 02:18 [facility] 05/07 01:25 Order name: CT Chest For PE Angio [facility] EC:35 Rate is 94 beats/min. Rhythm is regular. QRS [place] is Normal. ME interval is normal. QRS darrin interval is normal. QT interval is normal. No Q waves. T waves are Normal. No ST changes noted. Clinical impression: NSR w/ Non-specific ST/T Changes and No evidence of ischemia. Interpreted by me. Reviewed by me. Administered Medications: 02:10 Drug: Decadron - Dexamethasone 6 mg Route: IVP; Site: right antecubital; ea 03:43 Follow up: Response: No adverse reaction ea 02:12 Drug: Pepcid 20 mg Route: IVP; Site: right antecubital; ea 03:44 Follow up: Response: No adverse reaction ea 02:14 Drug: Rocephin 1 grams Route: IV; Rate: per protocol; Site: right antecubital; ea 03:00 Follow up: Response: No adverse reaction; IV Status: Completed infusion ea 02:17 Drug: Zithromax 500 mg Route: IVPB; Infused Over: 1 hrs; Site: right antecubital; ea 04:49 Follow up: Response: No adverse reaction; IV Status: Completed infusion ea 03:40 Drug: Potassium Effervescent Tablet 50 mEq Route: PO; ea 04:49 Follow up: Response: No adverse reaction ea 03:40 Drug: Aspirin 81 mg Route: PO; ea 04:49 Follow up: Response: No adverse reaction ea Disposition: 05/07/20 04:08 Hospitalization ordered by Laz Ruiz for Inpatient Admission. Preliminary diagnosis are Other viral pneumonia - bilateral multi focal, Fever, unspecified, Hypoxemia. - Bed requested for [facility] ER HOLD. - Status is Inpatient Admission. hb - Condition is Fair. - Problem is new. - Symptoms have improved. Signatures: Dispatcher [employer] EDMS Hemalatha Alonzo RN RN mw Gay, Steven, RN RN sg Anderson, Corey, MD MD cha Baxter, Heather, RN RN hb Antunez, Elena, RN RN ea Alzahri, Mohammad, MD MD ma2 Corrections: (The following items were deleted from the chart) 04:15 04:08 Hospitalization Ordered by Laz Ruiz DO for Inpatient Admission. Preliminary mw diagnosis is Other viral pneumonia - bilateral multi focal; Fever, unspecified; Hypoxemia. Bed requested for Telemetry/MedSurg (Inpatient). Status is Inpatient Admission. Condition is Fair. Problem is new. Symptoms have improved. darrin 15:25 04:15 05/07/2020 04:08 Hospitalization Ordered by Laz Ruiz DO for Inpatient hb Admission. Preliminary diagnosis is Other viral pneumonia - bilateral multi focal; Fever, unspecified; Hypoxemia. Bed requested for [facility] ER HOLD. Status is Inpatient Admission. Condition is Fair. Problem is new. Symptoms have improved. mw
--- NOTE | 2020-05-07 04:09 | ER ---
Nurse's Notes [facility] Name: Morris Tan Age: 44 yrs Sex: Male : 1975 Arrival Date: 05/07/2020 Time: 01:15 Bed 7 Private MD: Diagnosis: Other viral pneumonia-bilateral multi focal;Fever, unspecified;Hypoxemia Presentation: 05/07 01:29 Chief complaint: Patient states: Shortness of breath and chest pain, reports covid sg positive and having symptoms x 1 week, states fever for 8 days as well. This patient does not have his test results with him at this time. Coronavirus screen: Client presents with at least one sign or symptom that may indicate coronavirus-19. Standard/surgical mask placed on the client. Provider contacted for isolation considerations. Client reports previous positive COVID test result. are currently unavailable. Ebola Screen: Patient negative for fever greater than or equal to 101.5 degrees Fahrenheit, and additional compatible Ebola Virus Disease symptoms Patient denies exposure to infectious person. Patient denies travel to an Ebola-affected area in the 21 days before illness onset. No symptoms or risks identified at this time. Initial Sepsis Screen: Does the patient meet any 2 criteria? No. Patient's initial sepsis screen is negative. Does the patient have a suspected source of infection? Yes: Productive cough/pneumonia. Risk Assessment: Do you want to hurt yourself or someone else? Patient reports no desire to harm self or others. Onset of symptoms was April 29, 2020. Care prior to arrival: None. Transition of care: patient was not received from another setting of care. 01:29 Acuity: NAY 3 sg 01:29 Method Of Arrival: Ambulatory sg Triage Assessment: 01:50 General: Appears uncomfortable, Behavior is calm, cooperative. Pain: Complains of pain ea in headache. Neuro: Level of Consciousness is awake, alert, obeys commands, Oriented to person, place, time, situation. Cardiovascular: Patient's skin is warm and dry. Respiratory: Airway is patent Respiratory effort is even, unlabored, Respiratory pattern is regular, symmetrical. Derm: Skin is normal. Historical: - Allergies: 01:34 Codeine; sg - Home Meds: 02:06 None [Active]; sg - PMHx: 02:06 COVID 19; sg - PSHx: 01:34 Cholecystectomy; detached retina repair; sg - Immunization history:: Adult Immunizations up to date. - Social history:: Smoking status: Patient denies any tobacco usage or history of. - Family history:: not pertinent. Screenin:10 Abuse screen: Denies threats or abuse. Nutritional screening: No deficits noted. ea Tuberculosis screening: No symptoms or risk factors identified. Fall Risk IV access (20 points). Assessment: 02:15 Reassessment: see triage assessment. ea 03:46 Reassessment: Patient and/or family updated on plan of care and expected duration. Pain ea level reassessed. Patient is alert, oriented x 3, equal unlabored respirations, skin warm/dry/pink. Vital Signs: 01:42 BP 122 / 103; Pulse 91; Resp 16; Temp 99.1; Pulse Ox 94% on R/A; Weight 113.4 kg; ea Height 6 ft. (182.88 cm); 02:18 BP 129 / 90; Pulse 93; Resp 17; Pulse Ox 94% ; ea 04:46 BP 133 / 87; Pulse 90; Resp 20; Pulse Ox 89% on R/A; ea 01:42 Body Mass Index 33.91 (113.40 kg, 182.88 cm) ea 04:46 Pt sats taken after ambulating ea ED Course: 01:15 Patient arrived in ED. ag3 01:22 Rajendra Patterson MD is Attending Physician. darrin 01:29 Rosa Villanueva, GLORIA is Primary Nurse. ea 01:29 Arm band placed on. sg 01:32 Triage completed. sg 01:50 Inserted saline lock: 20 gauge in right antecubital area, using aseptic technique. ea Blood collected. 02:08 XRAY Chest (1 view) In Process Unspecified. EDMS 02:10 Patient has correct armband on for positive identification. Placed in gown. Bed in low ea position. Call light in reach. Side rails up X 1. refrigerator crater on. Pulse ox on. NIBP on. 03:33 CT Chest For PE Angio In Process Unspecified. EDMS 04:07 Laz Ruiz DO is Hospitalizing Provider. darrin 04:48 No provider procedures requiring assistance completed. Patient admitted, IV remains in ea place. 07:24 Primary Nurse role handed off by Rosa Villanueva, GLORIA sv 07:24 Joan, Pippa, RN is Primary Nurse. sv Administered Medications: 02:10 Drug: Decadron - Dexamethasone 6 mg Route: IVP; Site: right antecubital; ea 03:43 Follow up: Response: No adverse reaction ea 02:12 Drug: Pepcid 20 mg Route: IVP; Site: right antecubital; ea 03:44 Follow up: Response: No adverse reaction ea 02:14 Drug: Rocephin 1 grams Route: IV; Rate: per protocol; Site: right antecubital; ea 03:00 Follow up: Response: No adverse reaction; IV Status: Completed infusion ea 02:17 Drug: Zithromax 500 mg Route: IVPB; Infused Over: 1 hrs; Site: right antecubital; ea 04:49 Follow up: Response: No adverse reaction; IV Status: Completed infusion ea 03:40 Drug: Potassium Effervescent Tablet 50 mEq Route: PO; ea 04:49 Follow up: Response: No adverse reaction ea 03:40 Drug: Aspirin 81 mg Route: PO; ea 04:49 Follow up: Response: No adverse reaction ea Outcome: 04:08 Decision to Hospitalize by Provider. darrin 04:48 Instructed on the need for admit, Demonstrated understanding of instructions. ea 15:25 Patient left the ED. hb Signatures: Dispatcher [employer] EDPippa Carbone RN RN sv Gay, Steven, RN RN sg Anderson, Corey, MD MD cha Baxter, Heather, RN RN hb Antunez, Elena, RN RN ea Gomez, Alice ag3
--- NOTE | 2020-05-07 05:37 | P.HP ---
Certification for Inpatient Patient admitted to: Observation With expected LOS: <2 Midnights Patient will require the following post-hospital care: None Practitioner: I am a practitioner with admitting privileges, knowledge of patient current condition, hospital course, and medical plan of care. Services: Services provided to patient in accordance with Admission requirements found in Title 42 Section 412.3 of the Code of Federal Regulations <Heath Gordon - Last Filed: 05/07/20 05:34> Patient admitted to: Observation <Laz Ruiz - Last Filed: 05/07/20 09:14> Patient History Date of Service: 05/07/20 Primary Care Provider: None Reason for admission: COVID pneumonia History of Present Illness: Otherwise healthy 44-year-old male recently tested positive for Herbert virus on April 28. Patient had since then experiencing some shortness of breath and cough but it recently worsened significantly. Patient reports that when he is at rest he feels okay but if she gets up to even walk to the bathroom he becomes significantly short of breath with near syncopal episodes. Patient also reports nausea, vomiting, high fevers. Patient was evaluated in the emergency department, labs unremarkable aside from mild hypokalemia with potassium 3.3 and elevated CRP 99.5. Patient was ambulated and did desaturate into the high 80s. ED provider wishes to admit patient for further evaluation and management. When I saw the patient in the ER he is awake, alert, oriented x3. Patient seemed to be doing well when he is at rest. Will be admitted for further evaluation and management. 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 - Family History Family History: Reviewed- Non-Contributory - Social History Smoking Status: Never smoker Alcohol use: Yes CD- Drugs: No Caffeine use: Yes Place of Residence: Home <Heath Gordon - Last Filed: 05/07/20 05:34> Date of Service: 05/07/20 Home medications list reviewed: Yes <Laz Ruiz - Last Filed: 05/07/20 09:14> Allergies codeine [Codeine] Adverse Reaction (Mild, Verified 10/21/11 09:15) itch Review of Systems 10-point ROS is otherwise unremarkable Respiratory: Cough, Shortness of Breath, SOB with Excertion, Sputum <Heath Gordon - Last Filed: 05/07/20 05:34> Physical Examination - Physical Exam General: Alert, In no apparent distress HEENT: Atraumatic, PERRLA, Mucous membr. moist/pink Neck: Supple, 2+ carotid pulse no bruit, No LAD Respiratory: Normal air movement, Other (Breath sounds coarse bilaterally) Cardiovascular: Regular rate/rhythm, Normal S1 S2 Gastrointestinal: Normal bowel sounds, No tenderness Musculoskeletal: No tenderness Integumentary: No rashes Neurological: Normal speech, Normal strength at 5/5 x4 extr, Normal tone, Normal affect - Studies Laboratory Data (last 24 hrs) 05/07/20 01:50: PT 13.0 H, INR 1.10 05/07/20 01:50: WBC 7.3, Hgb 15.2, Hct 45.2, Plt Count 155 05/07/20 01:50: Sodium 139, Potassium 3.3 L, BUN 22 H, Creatinine 0.99, Glucose 109 H, Magnesium 2.2, Total Bilirubin 0.5, AST 22, ALT 17, Alkaline Phosphatase 52 <Heath Gordon - Last Filed: 05/07/20 05:34> - Studies Laboratory Data (last 24 hrs) 05/07/20 01:50: PT 13.0 H, INR 1.10 05/07/20 01:50: WBC 7.3, Hgb 15.2, Hct 45.2, Plt Count 155 05/07/20 01:50: Sodium 139, Potassium 3.3 L, BUN 22 H, Creatinine 0.99, Glucose 109 H, Magnesium 2.2, Total Bilirubin 0.5, AST 22, ALT 17, Alkaline Phosphatase 52 <Laz Ruiz - Last Filed: 05/07/20 09:14> Assessment and Plan - Plan Assessment COVID pneumonia with hypoxia Hypokalemia Plan COVID pneumonia with hypoxia: Continue IV steroids, supplements. Supplemental oxygen as needed. Daily room air saturations, room air saturation with exertion for home oxygen. Pulmonology consult in place. Trend CRP. DVT prophylaxis Lovenox 40 mg subcutaneous once daily. Incentive spirometry. Hypokalemia: Potassium protocol in place. Discharge Plan: Home Plan to discharge in: 24 Hours - Advance Directives Does patient have a Living Will: No Does patient have a Durable POA for Healthcare: No - Code Status/Comfort Care Code Status Assessed: Yes (Full code) Critical Care: No Time Spent Managing Pts Care (In Minutes): 55 <Heath Gordon - Last Filed: 05/07/20 05:34> - Plan Case reviewed in detail with nurse practitioner. Agree with evaluation, assessment and plan of care. Spoke with pulmonology on care patient. Patient much improved with IV steroids. Anticipate discharge today after oxygen is arranged. Patient will go home on prednisone, Eliquis and follow up with pulmonology. Will also arrange for him to establish care with a local PCP to follow up his care. Please see discharge summary for details. <Laz Ruiz - Last Filed: 05/07/20 09:14>
[2020-05-07 05:50] VITALS: BMI 27.8
[2020-05-07] MEDS ORDERED: ACETAMINOPHEN 500 MG TAB PO PRN (05:57)
[2020-05-07] MEDS ORDERED: MELATONIN 5 MG TABLET PO PRN (05:57)
[2020-05-07] MEDS ORDERED: HYDROCODONE/APAP 10/325 TAB PO PRN (05:57)
[2020-05-07] MEDS ORDERED: BENZONATATE 100 MG CAP PO PRN (05:57)
[2020-05-07] MEDS ORDERED: ONDANSETRON 4 MG/2 ML VIAL IV PRN (05:57)
--- NOTE | 2020-05-07 07:10 | EKG ---
Test Date: 2020-05-07 Test Time: 02:06:01 Television News Photographer: ROSEMARY MEASUREMENT RESULTS: Intervals: Rate: 94 NM: 174 QRSD: 100 QT: 356 QTc: 445 [place]: P: 37 NM: 174 QRS: 10 T: 24 INTERPRETIVE STATEMENTS: Normal sinus rhythm Normal ECG No previous ECG available for comparison Electronically Signed On 05-07-20 07:08:56 DRAPERY CUTTER MACHINE by Jayson Benedict
--- NOTE | 2020-05-07 08:39 | RAD REPORT ---
EXAM DESCRIPTION: RAD - Chest Single View - 05/07/2020 2:07 am CLINICAL HISTORY: Cough;Dyspnea COMPARISON: None TECHNIQUE: AP portable chest image was obtained 05/07/2020 2:07 am . FINDINGS: Lung volumes are slightly diminished. No dense consolidation. Interstitial opacification i s present. There is some minimal hazy ground-glass opacification. Bacterial pneumonia is not suspecte d. Pattern may be fibrosis or could be a mild viral infiltrate which would include COVID-19 pneumonia . Heart and vasculature are normal. No measurable pleural effusion and no pneumothorax. No acute bony abnormality seen. No acute aortic findings suspected. IMPRESSION: Baseline examination showing interstitial and minimal alveolar opacities. In the acute clinical setting, findings are suspicious for viral infiltrate which would include a COV ID-19 pneumonia.
[2020-05-07] MEDS ORDERED: VITAMIN D 1000 UNIT TAB ONE (08:53)
[2020-05-07] MEDS ORDERED: ASCORBIC ACID 500 MG TABLET ONE (08:53)
[2020-05-07] MEDS ORDERED: METHYLPREDNISOLONE 125 MG INJ ONE (08:53)
[2020-05-07] MEDS ORDERED: ASCORBIC ACID 500 MG TABLET PO SCH (09:00)
[2020-05-07] MEDS ORDERED: VITAMIN D 1000 UNIT TAB PO SCH (09:00)
[2020-05-07] MEDS ORDERED: ENOXAPARIN 40 MG/0.4 ML SQ SCH (09:00)
[2020-05-07] MEDS ORDERED: METHYLPREDNISOLONE 125 MG INJ IV SCH (09:00)
--- NOTE | 2020-05-07 09:27 | P.DS ---
Admission Date: 05/07/20 Discharge Date: 05/07/20 Primary Care Provider: None Disposition: ROUTINE DISCHARGE Discharge Condition: GOOD Reason for Admission: COVID pneumonia Consultations: Pulmonary-Dr. Alanis Procedures: Medical problem list: Dyspnea secondary to COVID 19 bilateral pneumonia with hypoxia Brief History of Present Illness: 44-year-old male tested positive for COVID 19 April 28. Patient came to the ER due to increasing shortness of breath and cough. Patient had shortness of breath with exertion. Patient was evaluated in the emergency room. CRP elevated. Patient required oxygen. Patient admitted for further evaluation and treatment. Hospital Course: Patient presented with COVID 19 like symptoms including cough and shortness of breath. Patient was diagnosed recently on the . Symptoms worsened. This required hospitalization. Patient was hypoxic. Patient with bilateral COVID 19 pneumonia. Patient received IV steroids and anti coagulation. Patient has done well. Patient seen by pulmonology. Patient without significant shortness of breath at discharge. Pulmonology recommends discharge at this time. Prior to discharge will arrange for home oxygen to maintain sats above 93%. Patient currently on 2 L. at discharge patient will continue with prednisone 20 mg will twice daily for 7 days then 20 mg daily for 7 days. The patient will also continue with Eliquis 5 mg 1 pill twice daily due to risk of blood clots related to COVID 19. Education on medication will be provided. The patient will continue with vitamin-C daily, vitamin-D daily and melatonin at night as needed. Education on COVID19 isolation will be provided. Patient will need to isolate for at least 10 days. Patient will continue with face mask use, social distance seen, and frequent hand washing. The patient will follow up with pulmonology in 1 week to follow up his care. I will provide information the patient to establish care with a local PCP. General: Alert, In no apparent distress, Cooperative HEENT: Atraumatic Neck: Supple Respiratory: Other (Patient breathing appropriately. No tachypnea noted. Patient on room air at 94% but decreased upon exertion. No accessory muscle use.) Cardiovascular: Normal pulses Neurological: Normal speech, Normal strength at 5/5 x4 extr, Normal tone, Normal affect Laboratory Data at Discharge: WBC 7.3 K/uL (4.3-10.9) 05/07/20 01:50 Hgb 15.2 g/dL (13.6-17.9) 05/07/20 01:50 Hct 45.2 % (39.6-49.0) 05/07/20 01:50 Plt Count 155 K/uL (152-406) 05/07/20 01:50 PT 13.0 SECONDS (9.5-12.5) H 05/07/20 01:50 INR 1.10 05/07/20 01:50 Sodium 139 mmol/L (136-145) 05/07/20 01:50 Potassium 3.3 mmol/L (3.5-5.1) L 05/07/20 01:50 BUN 22 mg/dL (7-18) H 05/07/20 01:50 Creatinine 0.99 mg/dL (0.55-1.3) 05/07/20 01:50 Glucose 109 mg/dL (74-106) H 05/07/20 01:50 Magnesium 2.2 mg/dL (1.8-2.4) 05/07/20 01:50 Total Bilirubin 0.5 mg/dL (0.2-1.0) 05/07/20 01:50 AST 22 U/L (15-37) 05/07/20 01:50 ALT 17 U/L (12-78) 05/07/20 01:50 Alkaline Phosphatase 52 U/L (45-117) 05/07/20 01:50 Home Medications: Apixaban [Eliquis] 5 mg PO BID #60 tablet 05/07/20 Ascorbate Calcium [Vitamin C] 500 mg PO DAILY #30 tablet 05/07/20 RX: Cholecalciferol (Vitamin D3) [Vitamin D 1000 Iu Tab*] 1,000 unit PO DAILY #30 tab 05/07/20 RX: Melatonin 5 mg PO BEDTIME PRN PRN #30 tablet 05/07/20 RX: predniSONE [Prednisone*] 20 mg PO SEECOM #21 tab 05/07/20 New Medications: Apixaban [Eliquis] 5 mg PO BID #60 tablet RX: Melatonin 5 mg PO BEDTIME PRN PRN #30 tablet PRN Reason: Insomnia RX: predniSONE [Prednisone*] 20 mg PO SEECOM #21 tab Ascorbate Calcium [Vitamin C] 500 mg PO DAILY #30 tablet RX: Cholecalciferol (Vitamin D3) [Vitamin D 1000 Iu Tab*] 1,000 unit PO DAILY #30 tab Patient Discharge Instructions: Patient presented with COVID 19 like symptoms including cough and shortness of breath. Patient was diagnosed recently on the . Symptoms worsened. This required hospitalization. Patient was hypoxic. Patient with bilateral COVID 19 pneumonia. Patient received IV steroids and anti coagulation. Patient has done well. Patient seen by pulmonology. Patient without significant shortness of breath at discharge. Pulmonology recommends discharge at this time. Prior to discharge will arrange for home oxygen to maintain sats above 93%. Patient currently on 2 L. at discharge patient will continue with prednisone 20 mg will twice daily for 7 days then 20 mg daily for 7 days. The patient will also continue with Eliquis 5 mg 1 pill twice daily due to risk of blood clots related to COVID 19. Education on medication will be provided. The patient will continue with vitamin-C daily, vitamin-D daily and melatonin at night as needed. Education on COVID19 isolation will be provided. Patient will need to isolate for at least 10 days. Patient will continue with face mask use, social distance seen, and frequent hand washing. The patient will follow up with pulmonology in 1 week to follow up his care. I will provide information the patient to establish care with a local PCP. Diet: AHA Activity: Ad suresh Followup: NONE,NONE [UNKNOWN] - Time spent managing pt's care (in minutes): 55
[2020-05-07] MEDS ORDERED: INFLUENZA VACCINE (for 3y+) 0.5 ML DOSE IMVAC ONE (10:00)
--- NOTE | 2020-05-07 10:17 | RAD REPORT ---
EXAM DESCRIPTION: CT - Chest For Pe Angio - 05/07/2020 6:54 am CLINICAL HISTORY: Chest pain;Dyspnea; COMPARISON: None Available. TECHNIQUE: CTA of the chest obtained following the uncomplicated intravenous administration of iodin ated contrast. 3-D/MIP reformatted images of the chest available for evaluation. Respiratory motion a rtifact. FINDINGS: Chest: Pulmonary arteries: Contrast bolus is adequate.No filling defects identified in the pulmonary arterie s to suggest pulmonary embolus. Thyroid: No abnormalities of the visualized thyroid. Great Vessels: Great vessels have normal anatomic configuration. Thoracic Aorta: No abnormalities of the thoracic aorta identified. Heart: No cardiomegaly, significant pericardial effusion, or coronary artery atherosclerosis Lymph Nodes: No enlarged mediastinal lymph nodes identified. Esophagus: Small hiatal hernia. Other: No additional findings. Lungs: Bilateral peripheral groundglass opacities. Pleura: No pleural effusion or pneumothorax. Trachea/Airways: No abnormalities of the visualized trachea or airways. Bones: No destructive osseous lesions. Upper Abdomen: Limited images of the upper abdomen demonstrate no definite abnormalities of visualize d portions of the gallbladder, pancreas, spleen, adrenal glands, or kidneys. Decreased density of the liver. IMPRESSION: 1. Bilateral peripheral groundglass opacities. Commonly reported imaging features of vir al pneumonia are present. Other processes such as influenza pneumonia and organizing pneumonia, as ca n be seen with drug toxicity and connective tissue disease, can cause a similar imaging pattern. PneT yp Reference: https://pubs.rsna.org/doi/full/10.1148/ryct.1019914302 2. No pulmonary embolus. 3. Hepatic steatosis. This exam was performed according to our departmental dose-optimization program, which includes autom ated exposure control, adjustment of the mA and/or kV according to patient size and/or use of iterati ve reconstruction technique. Electronically signed by: Tico Villaseñor 05/07/2020 3:52 AM DUST COLLECTOR OPERATOR Due to temporary technical issues with the PACS/Fluency reporting system, reports are being signed by the in house radiologist without review as a courtesy to ensure prompt reporting. The interpreting r adiologist is fully responsible for the content of the report.
[2020-05-07 11:37] VITALS: O2SAT 92
[2020-05-07 12:14] VITALS: BP 134/85
--- NOTE | 2020-05-07 12:25 | P.CNS ---
Date of Consult: 05/07/20 Primary Care Provider: None Chief Complaint: COVID pneumonia History of Present Illness: Patient is 44 years of age tested positive for fernández virus the end of March has been having some shortness of breath became worse ended up here in the hospital got some steroids and is doing much better also has some nausea vomiting high fever the time of my evaluation he had improved significantly Allergies codeine [Codeine] Adverse Reaction (Mild, Verified 10/21/11 09:15) itch Home Medications: Apixaban [Eliquis] 5 mg PO BID #60 tablet 05/07/20 Ascorbate Calcium [Vitamin C] 500 mg PO DAILY #30 tablet 05/07/20 Cholecalciferol (Vitamin D3) [Vitamin D 1000 Iu Tab*] 1,000 unit PO DAILY #30 tab 05/07/20 Melatonin 5 mg PO BEDTIME PRN PRN #30 tablet 05/07/20 predniSONE [Prednisone*] 20 mg PO SEECOM #21 tab 05/07/20 - Past Medical/Surgical History -: None -: Cholecystectomy Psychosocial/ Personal History: Patient lives at home alone and 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 - Social History Alcohol use: Yes CD- Drugs: No Caffeine use: Yes Place of Residence: Home Review of Systems General: Weakness Respiratory: Shortness of Breath Physical Examination Temp Pulse Resp BP Pulse Ox 79 22 H 134/85 90 L 05/07/20 12:00 05/07/20 12:00 05/07/20 12:00 05/07/20 12:00 General: Alert, Oriented x3 Respiratory: Clear to auscultation bilaterally Cardiovascular: No edema, Regular rate/rhythm Laboratory Data (last 24 hrs) 05/07/20 01:50: PT 13.0 H, INR 1.10 05/07/20 01:50: WBC 7.3, Hgb 15.2, Hct 45.2, Plt Count 155 05/07/20 01:50: Sodium 139, Potassium 3.3 L, BUN 22 H, Creatinine 0.99, Glucose 109 H, Magnesium 2.2, Total Bilirubin 0.5, AST 22, ALT 17, Alkaline Phosphatase 52 - Problems (1) Pneumonia due to 2019 novel coronavirus Current Visit: Yes Status: Acute Plan: Patient is 44 years of age otherwise healthy admitted with final pneumonia due to fernández virus saturation satisfactory on room air recommend discharge on prednisone 20 mg twice a day for a week then 10 mg twice a day follow-up with a telephone visit with me next week
== END 2020-05-07 15:30 | disposition home or self-care (01) ==
LOC: ER 01:12 → ERHOLD 05:30
PROVIDERS: ADMIT Family Medicine; ATTEND Family Medicine
DX: U07.1 COVID-19 (principal); J12.89 Other viral pneumonia; Z79.01 Long term (current) use of anticoagulants; R09.02 Hypoxemia
CPT/HCPCS: 96365; 93005; 87040 ×2; 85025; 80048; 36415; 83735; 85610; 80076; 84484; 82728; 83880; 86140; 71275; 71045; 96375; 99284; 96366; Q9967; J0456; J1100; J0696; J7050; J2930; G0378 ×2